=== PATIENT | female | born 1965 | race Caucasian/White ===

== ENCOUNTER 2018-07-28 18:32 | Emergency (ER) | payer SELFPAY ==
[2018-07-28 21:57] LABS: ADD UMIC YES; UR ASCORBIC ACID NEGATIVE (NEGATIVE); UR BACTERIA FEW /HPF (NONE SEEN); UR BILIRUBIN (Dip) NEGATIVE (NEGATIVE); UR BLOOD (Dip) 1+ mg/dL (NEGATIVE); UR CLARITY SLIGHTLY CLOUDY (CLEAR); UR COLOR AMBER (YELLOW); UR GLUCOSE (Dip) NEGATIVE (NEGATIVE); UR KETONES (Dip) NEGATIVE (NEGATIVE); UR LEUKOCYTE ESTERASE (Dip) 2+ Leu/ul (NEGATIVE); UR MUCUS MANY /HPF (NONE SEEN); UR NITRITE (Dip) NEGATIVE (NEGATIVE); UR RBC 9 /HPF (0-5); UR SPECIFIC GRAVITY (Dip) 1.029 (1.003-1.030); UR SQUAMOUS EPITHELIAL CELL FEW /HPF (FEW); UR TOTAL PROTEIN (Dip) 2+ mg/dl (NEGATIVE); UR UROBILINOGEN (Dip) 1+ mg/dL (NEGATIVE); UR WBC 19 /HPF (0-5)
[2018-07-29] MEDS: ALBUTEROL 0.083% (NEB) 2.5 MG/3 ML AMP HHN
[2018-07-29] MEDS: KETOROLAC 30 MG INJ IM (00:28)
[2018-07-29] MEDS: DEXAMETHASONE 10 MG/ML 1 ML INJ IM (00:28)
[2018-07-29 00:38] LABS: UR AMORPHOUS CRYSTAL MANY /HPF (NONE SEEN)
[2018-07-29] MEDS: AZITHROMYCIN 250 MG TAB PO (01:52)
[2018-07-29] MEDS: AMOXICILLIN/CLAV 875 MG TAB PO (01:52)
[2018-07-29] MEDS: ONDANSETRON (ODT) 4 MG TAB ODT (01:52)
== END 2018-07-29 02:05 | disposition home or self-care (01) ==
LOC: FTE 07-29 02:05
DX: J18.1 Lobar pneumonia, unspecified organism (principal); N39.0 Urinary tract infection, site not specified
CPT/HCPCS: 71046; 81001; 84703; 87400; 93005; 94664; 96372; 99285-25